=== PATIENT | female | born 1995 | race Caucasian/White ===

== ENCOUNTER 2021-01-24 19:45 | Emergency (ER) | payer SELFPAY ==
[~2021-01-24] VITALS: Ht 162.6 cm; Wt 100.0 kg
[~2021-01-24 19:45] MED LIST: CEPHALEXIN500 MG PO; PREVACID30 M3 PO; ZOFRAN ODT4 MG PO
[2021-01-24 20:58] LABS: URINE BILIRUBIN - DIPSTICK NEGATIVE (NEGATIVE); URINE BLOOD DIPSTICK NEGATIVE (NEGATIVE); URINE COLOR YELLOW; URINE GLUCOSE - DIPSTICK NEGATIVE (NEGATIVE); URINE KETONE NEGATIVE (NEGATIVE); URINE LEUK ESTERASE TRACE (NEGATIVE); URINE NITRITE - DIPSTICK NEGATIVE (Negative); URINE PROTEIN - DIPSTICK NEGATIVE (NEG-TRACE); URINE SPECIFIC GRAVITY >=1.030; URINE UROBILINOGEN - DIPSTICK 0.2 E.U./dL (0.2)
[2021-01-24] MEDS ORDERED: PHENERGAN25 MG/TAB PO (21:21)
[2021-01-24 21:40] VITALS: BP 128/63
== END 2021-01-24 21:40 | disposition home or self-care (01) | DRG 833 ==
LOC: ED 19:45
PROVIDERS: Emergency Medicine
DX: O26.899 Other specified pregnancy related conditions, unspecified trimester (principal); R11.0 Nausea

== ENCOUNTER 2021-07-23 09:46 | Emergency (ER) | payer OTHER ==
[~2021-07-23] VITALS: Ht 162.6 cm; Wt 100.0 kg
[~2021-07-23 09:46] MED LIST changes: +PHENERGAN25 MG/TAB PO
[2021-07-23] MEDS ORDERED: PROTONIX40 MG PO (10:43)
[2021-07-23 11:01] VITALS: BP 133/70
== END 2021-07-23 11:05 | disposition home or self-care (01) ==
LOC: ED 09:46
DX: O99.63 Diseases of the digestive system complicating the puerperium (principal); K29.70 Gastritis, unspecified, without bleeding